=== PATIENT | male | born 1985 | race Caucasian/White ===

== ENCOUNTER 2017-09-01 14:50 | Emergency (ER) | payer BC, OTHER ==
[2017-09-01] MEDS ORDERED: Morphine 2 MG/ML Syringe IVPUSH ONE ×2 (15:00→16:33)
[2017-09-01] MEDS ORDERED: Ondansetron 4 MG/2 ML SDV IVPUSH ONE (15:00)
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
[2017-09-01] MEDS ORDERED: Iopamidol 755 MG/ML 200 ML Multipack Bottle IVPUSH ONE (16:02)
[2017-09-01 17:36] VITALS: BP 106/72
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
== END 2017-09-01 17:25 | disposition home or self-care (01) ==
LOC: MW.ED 14:50
DX: S52.122A Displaced fracture of head of left radius, initial encounter for closed fracture (principal); V23.4XXA Motorcycle driver injured in collision with car, pick-up truck or van in traffic accident, initial encounter; Z88.0 Allergy status to penicillin; Z88.5 Allergy status to narcotic agent
CPT/HCPCS: 70450; 71260; 72125; 73030; 73501; 96374; 96375; 99284; J2270; J2405; Q9967